=== PATIENT | male | born 1985 | race African-American/Black ===

== ENCOUNTER 2024-08-02 08:45 | Emergency (ER) | payer OTHER ==
[~2024-08-02] VITALS: Ht 188 cm; Wt 90.9 kg
[2024-08-02 08:55] VITALS: TEMP 98.2
[2024-08-02 09:21] LABS: BASOPHILS % (AUTO) 1.5 % (0.0-2.0); EOSINOPHILS % (AUTO) 1.2 % (1.0-6.0); HEMATOCRIT 46.6 % (41-53); HEMOGLOBIN 15.6 g/dL (13.5-17.5); LYMPHOCYTES # (AUTO) 1.7 K/uL (1.0-4.8); LYMPHOCYTES % (AUTO) 55.3 % (22.0-44.0); MEAN CORPUSCULAR HEMOGLOBIN 30.9 pg (26.0-34.0); MEAN CORPUSCULAR HGB CONC 33.4 G/dL (31.0-37.0); MEAN CORPUSCULAR VOLUME 93 fL (80-100); MONOCYTES # (AUTO) 0.3 K/uL (0.1-1.0); MONOCYTES % (AUTO) 9.2 % (2.0-9.0); NEUTROPHILS % (AUTO) 32.8 % (40.0-70.0); PLATELET COUNT (AUTO) 238 K/uL (150-450); RED BLOOD CELL COUNT(AUTO) 5.03 MIL/uL (4.50-5.90)
[2024-08-02 09:26] LABS: ANION GAP 5 mmol/L (8-16); CARBON DIOXIDE 33 mmol/L (22-29); CHLORIDE 102 mmol/L (98-107); CREATININE 0.96 mg/dL (0.60-1.30); GLOMERULAR FILTR. RATE CALC > 60 mL/min (>60); GLUCOSE,RANDOM 92 mg/dL (70-110); POTASSIUM 4.2 mmol/L (3.5-5.1); SODIUM SERUM 140 mmol/L (136-145); UREA NITROGEN, BLOOD 6 mg/dL (7-18)
[2024-08-02 09:32] LABS: ALBUMIN 3.9 g/dL (3.4-5.0); BILIRUBIN,DIRECT 0.1 mg/dL (0.00-0.20); BILIRUBIN,TOTAL 0.3 mg/dL (0.1-1.0); TOTAL PROTEIN, SERUM 8.3 g/dL (6.4-8.2)
[2024-08-02] MEDS: ONDANSETRON HCL 4 MG/2 ML VIAL IVP ONE (09:32)
[2024-08-02] MEDS: SODIUM CHLORIDE 0.9% 1,000 ML IV ONE (09:33)
[2024-08-02] MEDS: MAG HYDROX/ALUMINUM HYD/SIMETH 30 ML SUSPENSION UDCUP PO ONE (09:33)
[2024-08-02] MEDS: FAMOTIDINE 20 MG/2 ML VIAL IVP ONE (09:33)
[2024-08-02] MEDS: KETOROLAC TROMETHAMINE 30 MG/ML VIAL IVP ONE (09:33)
[2024-08-02] MEDS ORDERED: IOHEXOL 350 MG/ML 100 ML VIAL ONE (10:29)
[2024-08-02] MEDS ORDERED: SODIUM CHLORIDE 0.9% 100 ML ONE (10:29)
[2024-08-02 10:54] LABS: COVID AG,FIA SOURCE NASAL SWAB
[2024-08-02 11:28] LABS: SARS-COV2 (COVID) ANTIGEN,FIA Negative (Negative)
[2024-08-02 11:29] LABS: INFLUENZA TYPE A NEGATIVE FOR TYPE A (NEGATIVE); INFLUENZA TYPE B NEGATIVE FOR TYPE B (NEGATIVE)
[2024-08-02] MEDS ORDERED: ACET-3385 PO (11:48)
[2024-08-02] MEDS ORDERED: ONDA-104 PO (11:48)
[2024-08-02 12:34] VITALS: BP 119/67; PULSE 77; RESP 18; O2SAT 98
== END 2024-08-02 12:42 | disposition home or self-care (01) ==
LOC: EMS 08:48
DX: K52.9 Noninfective gastroenteritis and colitis, unspecified (principal); R10.33 Periumbilical pain; R11.2 Nausea with vomiting, unspecified; Z91.013 Allergy to seafood; Z20.822 Contact with and (suspected) exposure to COVID-19
CPT/HCPCS: 99285; 74177; 96374; 96375; 96361; 87426; 80048; 80076; 83690; 85025; 87804; 36415; J1885; Q9967; J3490; J2405; J7030; J7050